=== PATIENT | male | born 1990 | race Caucasian/White ===

== ENCOUNTER 2018-02-27 13:07 | Emergency (ER) | payer OTHER ==
[~2018-02-27] VITALS: Ht 160 cm; Wt 54.4 kg
--- NOTE | 2018-02-27 13:18 | NUR ---
Patient to ER h1 to gown for evaluation. Side rails up.
--- NOTE | 2018-02-27 13:20 | NUR ---
ER Dr. Santiago at bedside examining patient.
--- NOTE | 2018-02-27 13:25 | NUR ---
Pt presents to ER brought in by TERELL for blood alcohol draw. Pt denies any complaints at this time, pt speaking full sentences, AOX4, ambulatory, arrived in handcuffs.
[2018-02-27 13:32] VITALS: BP_SYST 137
--- NOTE | 2018-02-27 13:49 | NUR ---
Written and verbal consent obtained from patient for blood alcohol, name and verified by patient. Disinfected patient's skin with betadine that did not contain alcohol or other volatile organic compound. Collected the blood from the subject named by venipuncture, in the presence of Officer Lev. Used a sterile, dry hypodermic needle and dry vacuum blood collection. The dry vacuum blood collection was supplied by the officer named above. Withdrew a specimen of blood from RIGHT AC of the subject named above. Inverted the blood tube several times to ensure that the preservative and anticoagulant were thoroughly mixed in the blood specimen. I initialed the blood tube label for identification. The labeled blood tube was handed directly to the Officer named above. The blood tube stopper remained in place while I had possession of the blood tube. The Officer placed tube into envelope and sealed it in my presence. Envelope initialed by myself and Officer named above. Patient tolerated well, bandage applied, and bleeding controlled.
--- NOTE | 2018-02-27 13:49 | NUR ---
Note tyrone in EDM - 02/27/18 at 1352 by [email or web address] Written and verbal consent obtained from patient for blood alcohol, name and verified by patient. Disinfected patient's skin with that did not contain alcohol or other volatile organic compound. Collected the blood from the subject named by venipuncture, in the presence of Officer Lev. Used a sterile, dry hypodermic needle and dry vacuum blood collection. The dry vacuum blood collection was supplied by the officer named above. Withdrew a specimen of blood from RIGHT AC of the subject named above. Inverted the blood tube several times to ensure that the preservative and anticoagulant were thoroughly mixed in the blood specimen. I initialed the blood tube label for identification. The labeled blood tube was handed directly to the Officer named above. The blood tube stopper remained in place while I had possession of the blood tube. The Officer placed tube into envelope and sealed it in my presence. Envelope initialed by myself and Officer named above. Patient tolerated well, bandage applied, and bleeding controlled.
[2018-02-27 13:51] VITALS: BP_SYST 137
--- NOTE | 2018-02-27 13:51 | NUR ---
Pt discharged in custody of TERELL.
== END 2018-02-27 13:51 ==
LOC: SED 13:07
DX: Z02.83 Encounter for blood-alcohol and blood-drug test (principal)